=== PATIENT | male | born 1995 | race Hispanic/Latino ===

== ENCOUNTER 2022-07-02 06:43 | Emergency (ER) | payer BC ==
--- OUTSIDE RECORDS SUMMARY | 2022-07-02 06:47 | XMS REPORT | Continuity of Care Document ---
:1995 Author Organization [facility] t Address [address] [place] [address] Care Team Providers Name Role Phone ANNE MARIE KINGSLEY Primary Care Physician Unavailable Anne Marie Catalan Attending Clinician ANNE MARIE KINGSLEY Attending Clinician Unavailable Lab, Ang - Db Attending Clinician Unavailable Doctor Unassigned, Clarita Attending Clinician Unavailable JENN_Susan Attending Clinician Unavailable Diane Barajas Attending Clinician [phone] ULICES Admitting Clinician Unavailable Payers Payer Name Policy Type Policy Number Effective Date Expiration Date [place] [id number] 2021 00:00:00 [place] Problems Condition Condition Condition Status Onset Resolution Last Treating Co mments Source Name Details Category Date Date Treatment Clinician Date No known No known Disease Unive rs active active ity of problems problems [facility] Allergies, Adverse Reactions, Alerts Allergy Allergy Status Severity Reaction(s) Onset Inactive Treating Comm ents Source Name Type Date Date Clinician NO KNOWN Drug Active Univers ALLERGIE Class ity of S [facility] Social History Social Habit Start Date Stop Date Quantity Comments Source History of Cigar Smoker University o f tobacco use [place] [facility] History SDOH University o f Alcohol Frequency [place] [facility] History SDOH University o f Alcohol Std [place] [facility] History SDOH University o f Alcohol Binge [place] [facility] Exposure to 2021-09-02 2021-09-12 Not sure University of SARS-CoV-2 00:00:00 12:48:00 [place] [facility] (event) [facility] Tobacco use and 2021-09-12 2021-09-12 Never used Universit y of exposure 00:00:00 00:00:00 [facility] Alcohol intake 2021-09-12 2021-09-12 Current drinker Unive rsity of 00:00:00 00:00:00 of alcohol [facility] (finding) [place] Alcohol Comment 2021-09-12 2021-09-12 2-3/ week Universit y of 00:00:00 00:00:00 [facility] Sex Ass[birth year] At [birth year] Universit y of 00:00:00 00:00:00 [facility] Smoking Status Start Date Stop Date Source Never Smoker [facility] Current some day smoker 2021-09-12 00:00:00 [facility] Medications Ordered Filled Start Stop Current Ordering Indication Dosage Frequency Signature Comments Components Source Medication Medication Date Date Medication? Clinician (SIG) Name Name pantoprazol Yes [id number] 40mg Take 1 Univers e 4-26 tablet by ity of (PROTONIX) 00:00: mouth [place] 40 mg EC 00 daily. Medical tablet Branch pantoprazol Yes [id number] 40mg Take 1 Univers e 4-26 tablet by ity of (PROTONIX) 00:00: mouth [place] 40 mg EC 00 daily. Medical tablet Branch pantoprazol Yes [id number] 40mg Take 1 Univers e 4-26 tablet by ity of (PROTONIX) 00:00: mouth [place] 40 mg EC 00 daily. Medical tablet Branch azithromyci azithromyci No 1 Q1D azithromyc [place] n 500 mg n 500 mg in 500 mg Co mmuni tablet Take tablet Take tablet ty 1 tablet 1 tablet Take 1 Hospi ta every day every day tablet l by oral by oral every day Clin ics route for 5 route for 5 by oral days. days. route for 5 days. prednisone prednisone No 1 BID prednisone [place] 20 mg 20 mg 20 mg Communi tablet Take tablet Take tablet ty 1 tablet 1 tablet Take 1 Hospi ta twice a day twice a day tablet l by oral by oral twice a Clinic s route for 5 route for 5 day by days. days. oral route for 5 days. Vital Signs Vital Name Observation Time Observation Value Comments Source Systolic blood 2021-09-12 18:09:00 122 mm[Hg] Univer sity of pressure [facility] Diastolic blood 2021-09-12 18:09:00 83 mm[Hg] Unive rsity of pressure [facility] Heart rate 2021-09-12 18:09:00 56 /min [facility] Body temperature 2021-09-12 18:09:00 [facility].78 [facility] height 2021-09-12 18:09:00 177.8 cm [facility] Body weight 2021-09-12 18:09:00 109.907 kg [facility] BMI 2021-09-12 18:09:00 34.77 kg/m2 [facility] Oxygen saturation in 2021-09-12 18:09:00 99 /min [facility] blood by [facility] Pulse oximetry Branch BP Diastolic 2021-05-04 00:00:00 74 mm[Hg] [facility] s Height 2021-05-04 00:00:00 70 [in_i] [facility] s BMI (Body Mass 2021-05-04 00:00:00 35.2 kg/m2 [facility] s BP Systolic 2021-05-04 00:00:00 122 mm[Hg] [facility] s Body Weight 2021-05-04 00:00:00 3929.6 [oz_av] [facility] s Procedures Procedure Date / Time Performed Performing Clinician Sour e US ABDOMEN LIMITED 2021-09-12 20:38:59 Anne Marie Kingsley [facility] NOTICE OF PRIVACY 2021-09-12 19:49:17 Doctor Unassigned, No [facility] CONSENT/REFUSAL FOR 2021-09-12 19:49:03 Doctor Unassigned, No [facility] DIAGNOSIS AND [facility] TREATMENT ASSIGNMENT OF BENEFITS 2021-09-12 19:48:48 Doctor Unassigned, No [facility] Plan of Care Planned Activity Planned Date Details Comments Source Diagnostic Test Pending 2021-05-04 rapid strep group [facility] 00:00:00 A, throat [code = Hospital C linics rapid strep group A, throat] Instructions [place] [facility] Encounters Start End Encounter Admission Attending Care Care Encounter Source Date/Time Date/Time Type Type Clinicians Facility Department ID 2021-09-12 2021-09-12 [facility] [id number] Univers 14:50:44 23:59:00 Encounter Anne Marie BENITEZ [id number] ity [id number] [id number] [facility] [address] [place] 2021-09-12 2021-09-12 [facility] [id number] Univers 14:50:44 14:50:44 ANNE MARIE alatorre [facility] 2021-09-12 2021-09-12 Nurse Intern Lab, Lloyd - Alec [facility] [id number] Univers 14:15:00 14:18:53 Visit Anne Marie Kingsley [id number] ity of [place] [id number] [place] as [place]AMILLA?BLEA [phone] [facility] [address] [place] MEDICAL OFFICE [facility] 2021-09-12 2021-09-[address] [id number] Univers 13:00:00 14:18:45 Visit Anne Marie HUMPHREY [id number] it y [facility] [id number] [place] as [place]AMILLA?BLEA [id number] [facility] [address] [place] MEDICAL OFFICE [facility] 2021-09-12 2021-09-12 [facility] [id number] Univers 13:00:00 14:18:45 ANNE MARIE itxenia [facility] 2021-09-12 2021-09-12 Orders Doctor DENISA [id number] Univers 00:00:00 00:00:00 Only Unassigned, HARDEEP [id number] ity of [place] [facility] [id number] [place] as [id number] [facility] 009 Branch 2021-07-25 2021-07-25 Outpatient [facility] [id number] [place] 02:49:00 02:49:00 308 Commun i ty [facility] 2021-06-20 2021-06-20 Outpatient [facility] [id number] [place] 02:12:00 02:12:00 201 Commun i ty [facility] Clin[facility] 2021-05-16 2021-05-16 Outpatient [facility] [id number] [place] 04:32:00 04:32:00 228 Commun i ty [facility]osp[facility] Clin[facility] 2021-05-04 2021-05-04 Outpatient [facility] [id number] [place] 03:12:00 03:12:00 216 Commun i ty Hosp[facility] Clinics 2021-05-04 2021-05-04 Diane [facility] [place] [id number] [place] 00:00:00 00:00:00 Jenn [facility] [employer]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 2021-05-04 2021-05-04 Outpatient Jenn [facility] [id number] 00:00:00 00:00:00 Diane [id number] Results This patient has no known results.
[2022-07-02] MEDS ORDERED: MECLIZINE HCL 12.5 MG TAB ONE (07:33)
[2022-07-02 07:47] LABS: Absolute Lymphocytes (CBC) 1.7 K/uL (0.7-4.9); Hematocrit 44.3 % (39.6-49.0); MCV 84.8 fL (80-100); MPV 7.8 fL (7.6-11.3); RBC Red Blood Cell Count 5.22 M/uL (4.33-5.43)
[2022-07-02 07:53] LABS: Protime INR 0.97
[2022-07-02 08:07] LABS: Albumin 4.1 g/dL (3.4-5.0); Bilirubin Direct 0.1 mg/dL (0-0.2); Bilirubin Total 0.4 mg/dL (0.2-1.0); Magnesium 2.5 mg/dL (1.6-2.4); Potassium 3.9 mmol/L (3.5-5.1); Protein, Total 7.4 g/dL (6.4-8.2); Troponin High Sensitivity 4.8 pg/mL (<58.9)
--- NOTE | 2022-07-02 08:45 | RAD REPORT ---
EXAM DESCRIPTION: CT - Head Brain Wo Cont - 07/02/2022 8:32 am CLINICAL HISTORY: DIZZINESS Headache, drowsiness COMPARISON: Neck Angio dated 07/02/2022; Head angio dated 07/02/2022 TECHNIQUE: All CT scans are performed using dose optimization technique as appropriate and may inclu de automated exposure control or mA/KV adjustment according to patient size. FINDINGS: No intracranial hemorrhage, hydrocephalus or extra-axial fluid collection.No areas of brai n edema or evidence of midline shift. The paranasal sinuses and mastoids are clear. The calvarium is intact. IMPRESSION: No acute intracranial abnormality.
--- NOTE | 2022-07-02 08:52 | RAD REPORT ---
EXAM DESCRIPTION: RAD - Chest Single View - 07/02/2022 7:35 am CLINICAL HISTORY: dizziness Chest pain. COMPARISON: Chest Pa And Lat (2 Views) dated 04/22/2017 FINDINGS: Portable technique limits examination quality. The lungs are grossly clear. The heart is upper limit of normal in size. No displaced fractures. IMPRESSION: No acute intrathoracic process suspected.
--- NOTE | 2022-07-02 08:58 | RAD REPORT ---
EXAM DESCRIPTION: CT - Head angio - 07/02/2022 8:32 am CLINICAL HISTORY: DIZZINESS Headache, drowsiness COMPARISON: Head Brain Wo Cont dated 07/02/2022 TECHNIQUE: CT angiography of the head was performed with MIPs. All CT scans are performed using dose optimization technique as appropriate and may include automated exposure control or mA/KV adjustment according to patient size. FINDINGS: No evidence of aneurysm is detected. No flow-limiting stenosis or vascular malformation id entified. Antegrade flow is seen in the vertebral arteries. The vertebral arteries are codominant. The visualized dural venous sinuses are patent. Mild sinus mucosal thickening. IMPRESSION: No significant flow abnormality is detected.
--- NOTE | 2022-07-02 09:01 | RAD REPORT ---
EXAM DESCRIPTION: CT - Neck Angio - 07/02/2022 8:32 am CLINICAL HISTORY: dizziness Headache, drowsiness COMPARISON: Head C Spine Mpr Wo Con dated 03/26/2016 TECHNIQUE: CT angiography of the neck vessels was performed with MIPs. All CT scans are performed using dose optimization technique as appropriate and may include automated exposure control or mA/KV adjustment according to patient size. FINDINGS: A left aortic arch is identified with normal three vessel configuration of the great vesse ls. No significant flow abnormality is seen of the common carotid bilaterally. No significant stenosis is identified involving the cervical segments of both internal carotid arteri es. Normal flow is seen within both vertebral arteries. IMPRESSION: No significant flow abnormality of the neck vessels is identified.
--- NOTE | 2022-07-02 09:33 | ER ---
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 Coronavirus screen: Vaccine status: Patient reports being unvaccinated. At this time, the client does not indicate any symptoms associated with coronavirus-19. Ebola Screen: No symptoms or risks identified at this time. Initial Sepsis Screen: Does the patient meet any 2 criteria? No. Patient's initial sepsis screen is negative. Does the patient have a suspected source of infection? No. Patient's initial sepsis screen is negative. Risk Assessment: Do you want to hurt yourself or someone else? Patient reports no desire to harm self or others. Onset of symptoms was June 21, 2022. 06:59 Method Of Arrival: Ambulatory ll3 06:59 Acuity: CHETAN 3 ll3 Triage Assessment: 07:01 General: Appears comfortable, Behavior is calm, cooperative. Pain: Denies pain. Neuro: ll3 Level of Consciousness is awake, alert, obeys commands, Oriented to person, place, time, situation, Reports dizziness, since 06/21/22. Historical: - Allergies: 07:01 No Known Allergies; ll3 - Home Meds: 07:01 Pepcid Oral [Active]; ll3 - PMHx: 07:01 Gastric reflux; ll3 - PSHx: 07:01 None; ll3 - Immunization history:: Client reports having NOT received the Covid vaccine. - Social history:: Smoking status: Patient denies any tobacco usage or history of. - Family history:: not pertinent. - Hospitalizations: : No recent hospitalization is reported. Screenin:08 [facility] ED Fall Risk Assessment (Adult) History of falling in the last 3 months, eh3 including since admission No falls in past 3 months (0 pts) Confusion or Disorientation No (0 pts) Intoxicated or Sedated No (0 pts) Impaired Gait No (0 pts) Mobility Assist Device Used No (0 pt) Altered Elimination No (0 pt) Score/Fall Risk Level 0 - 2 = Low Risk. Abuse screen: Denies threats or abuse. Denies injuries from another. Nutritional screening: No deficits noted. Tuberculosis screening: No symptoms or risk factors identified. Assessment: 07:08 General: Appears in no apparent distress. uncomfortable, Behavior is calm, cooperative, eh3 appropriate for age. Pain: Denies pain. Neuro: Level of Consciousness is awake, alert, obeys commands, Oriented to person, place, time, situation, Speech is normal, Pupils are PERRLA. Neuro: Reports blurred vision dizziness. Cardiovascular: Capillary refill < 3 seconds Patient's skin is warm and dry. Respiratory: Airway is patent Respiratory effort is even, unlabored, Respiratory pattern is regular, symmetrical. GI: No signs and/or symptoms were reported involving the gastrointestinal system. Abdomen is round non-distended. : No signs and/or symptoms were reported regarding the genitourinary system. EENT: No signs and/or symptoms were reported regarding the EENT system. Derm: Skin is pink, warm \\T\\ dry. Derm: No signs and/or symptoms reported regarding the dermatologic system. Musculoskeletal: No signs and/or symptoms reported regarding the musculoskeletal system. Circulation, motion, and sensation intact. Range of motion: intact in all extremities. 08:00 Reassessment: Patient appears in no apparent distress at this time. Patient and/or 3 family updated on plan of care and expected duration. Pain level reassessed. Patient is alert, oriented x 3, equal unlabored respirations, skin warm/dry/pink. 08:51 Reassessment: Patient appears in no apparent distress at this time. Patient and/or 3 family updated on plan of care and expected duration. Pain level reassessed. Patient is alert, oriented x 3, equal unlabored respirations, skin warm/dry/pink. Vital Signs: 06:59 BP 128 / 80; Pulse 65; Resp 16; Temp 98.4(O); Pulse Ox 100% on R/A; Weight 106.14 kg ll3 (R); Height 5 ft. 11 in. (180.34 cm) (R); Pain 0/10; 07:08 BP 137 / 81; Pulse 61; Resp 18; Pulse Ox 100% on R/A; eh3 08:00 BP 124 / 85; Pulse 62; Resp 15; Pulse Ox 99% on R/A; eh3 08:51 BP 117 / 76; Pulse 70; Resp 17; Pulse Ox 100% on R/A; eh3 06:59 Body Mass Index 32.64 (106.14 kg, 180.34 cm) 3 ED Course: 06:48 Patient arrived in ED. ja2 06:51 Urbano Cross DO is Attending Physician. ms3 07:01 Triage completed. ll3 07:01 Arm band placed on. ll3 07:03 Attending Physician role handed off by Urbano Cross DO rn 07:03 Robbie Joya MD is Attending Physician. rn 07:08 Razia Dove, JULIO C is Primary Nurse. 3 07:08 Patient has correct armband on for positive identification. Bed in low position. Call 3 light in reach. Side rails up X2. Pulse ox on. NIBP on. Door closed. Noise minimized. 07:35 Inserted saline lock: 20 gauge in left wrist, using aseptic technique. Blood collected. ha1 09:44 No provider procedures requiring assistance completed. IV discontinued, intact, eh3 bleeding controlled, No redness/swelling at site. Pressure dressing applied. Administered Medications: 07:30 Drug: Meclizine 50 mg Route: PO; ha1 09:43 Follow up: Response: No adverse reaction 3 Medication: 09:44 VIS not applicable for this client. 3 Outcome: 09:33 Discharge ordered by . rn 10:00 Discharged to home ambulatory, with family. 3 10:00 Condition: stable 10:00 Discharge instructions given to patient, family, Instructed on discharge instructions, follow up and referral plans. medication usage, Demonstrated understanding of instructions, follow-up care, medications, Prescriptions given X 1. 10:00 Patient left the ED. 3 Signatures: Robbie Joya MD MD rn Sims, Marcus, DO DO ms3 Kiley Villegas ja2 Marin Ulloa RN RN 3 Razia Dove, JULIO C BUNCH 3 Damari Anders RN RN 1 Corrections: (The following items were deleted from the chart) 07:02 07:01 Home Meds: None; ll3 ll3
--- NOTE | 2022-07-02 09:33 | EDPHYS ---
Physician Documentation [facility] Nadeen Name: Bao Schaefer Age: 27 yrs Sex: Male : 1995 Arrival Date: 07/02/2022 Time: 06:48 Bed 12 Private MD: ED Physician Robbie Joya HPI: 07/02 07:38 This 27 yrs old Male presents to ER via Ambulatory with complaints of rn Dizziness. 07:38 The patient presents with dizziness, feeling faint, lightheadedness, vertigo. rn 07:40 Onset: The symptoms/episode began/occurred 2 week(s) ago. Context: occurred at an rn unknown location, occurred while the patient was at rest. Modifying factors: The symptoms are alleviated by nothing, the symptoms are aggravated by sudden movement, getting hit it head. Associated signs and symptoms: Pertinent negatives: abdominal pain, agitation, ataxia, chest pain, confusion, focal weakness, headache, numbness, palpitations, seizure, shortness of breath, syncope, vomiting. Severity of symptoms: At their worst the symptoms were moderate in the emergency department the symptoms have improved. The patient has experienced similar episodes in the past. The patient has not recently seen a physician. 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 No chest pain/sob/abd pain/vomiting/diarrhea/blood in stool. . Historical: - Allergies: 07:01 No Known Allergies; ll3 - Home Meds: 07:01 Pepcid Oral [Active]; ll3 - PMHx: 07:01 Gastric reflux; ll3 - PSHx: 07:01 None; ll3 - Immunization history:: Client reports having NOT received the Covid vaccine. - Social history:: Smoking status: Patient denies any tobacco usage or history of. - Family history:: not pertinent. - Hospitalizations: : No recent hospitalization is reported. ROS: 07:40 Constitutional: Negative for fever, chills, and weight loss, Cardiovascular: Negative rn for chest pain, palpitations, and edema, Respiratory: Negative for shortness of breath, cough, wheezing, and pleuritic chest pain, Abdomen/GI: Negative for abdominal pain, nausea, vomiting, diarrhea, and constipation, Back: Negative for injury and pain, MS/Extremity: Negative for injury and deformity, Skin: Negative for injury, rash, and discoloration, Neuro: Negative for headache, weakness, numbness, tingling, and seizure. Exam: 07:40 Constitutional: This is a well developed, well nourished patient who is awake, alert, rn and in no acute distress. Head/Face: Normocephalic, atraumatic. Eyes: Pupils equal round and reactive to light, extra-ocular motions intact. Lids and lashes normal. Conjunctiva and sclera are non-icteric and not injected. Cornea within normal limits. Periorbital areas with no swelling, redness, or edema. Neck: Trachea midline, no masses palpated, and no cervical lymphadenopathy. Supple, full range of motion without nuchal rigidity, or vertebral point tenderness. No Meningismus. Cardiovascular: Regular rate and rhythm. No pulse deficits. Respiratory: No increased work of breathing, no retractions or nasal flaring. Abdomen/GI: Soft, non-tender Skin: Warm, dry with normal turgor. Normal color with no rashes, no lesions, and no evidence of cellulitis. MS/ Extremity: Pulses equal, no cyanosis. Neurovascular intact. Full, normal range of motion. Equal circumference. Neuro: Awake and alert, GCS 15, oriented to person, place, time, and situation. Cranial nerves II-XII grossly intact. Motor strength 5/5 in all extremities. Sensory grossly intact. Cerebellar exam normal. 09:33 ECG was reviewed by the Attending Physician. rn Vital Signs: 06:59 BP 128 / 80; Pulse 65; Resp 16; Temp 98.4(O); Pulse Ox 100% on R/A; Weight 106.14 kg ll3 (R); Height 5 ft. 11 in. (180.34 cm) (R); Pain 0/10; 07:08 BP 137 / 81; Pulse 61; Resp 18; Pulse Ox 100% on R/A; eh3 08:00 BP 124 / 85; Pulse 62; Resp 15; Pulse Ox 99% on R/A; eh3 08:51 BP 117 / 76; Pulse 70; Resp 17; Pulse Ox 100% on R/A; eh3 06:59 Body Mass Index 32.64 (106.14 kg, 180.34 cm) ll3 MDM: 06:56 Patient medically screened. ms3 06:56 ED course: Patient medically screened awaiting Dr Joya. 2 weeks of dizziness, ms3 described as the room spinning around him. Patient states he took Dramamine to reduce his symptoms. Patient states he is asymptomatic at this time.. 09:31 Differential diagnosis: cardiac arrhythmia, CVA, generalized weakness, GI bleed, rn hyperventilation, hypovolemia, idiopathic dizziness, near-syncope, TIA, vertigo. Data reviewed: vital signs, nurses notes, lab test result(s), EKG, radiologic studies, CT scan, plain films, and as a result, I will discharge patient. Independent interpretation of the following test(s) in the Emergency Department EKG: See my EKG interpretation above X-Ray: My interpretation is CXR neg for pneumonia/pneumothorax. Counseling: I had a detailed discussion with the patient and/or guardian regarding: the historical points, exam findings, and any diagnostic results supporting the discharge/admit diagnosis, lab results, radiology results, the need for outpatient follow up, to return to the emergency department if symptoms worsen or persist or if there are any questions or concerns that arise at home. Response to treatment: the patient's symptoms have mildly improved after treatment, and as a result, I will discharge patient. Special discussion: I discussed with the patient/guardian in detail that at this point there is no indication for admission to the hospital. It is understood, however, that if the symptoms persist or worsen the patient needs to return immediately for re-evaluation. Based on the history and exam findings, there is no indication for further emergent testing or inpatient evaluation. I discussed with the patient/guardian the need to see the neurologist for further evaluation of the symptoms. I discussed with the patient/guardian the need to see the primary care provider for further evaluation of the symptoms. ED course: CT head and CTA head/neck neg for acute abnormality, stable vitals, neg trop, normal ECG, feels better after meclizine, will dc home with pcp and neuro f/u as well as meclizine prescription. . 07/02 07:14 Order name: Basic Metabolic Panel rn 07/02 07:14 Order name: CBC with Diff rn 07/02 07:14 Order name: Hepatic Function rn 07/02 07:14 Order name: Magnesium rn 07/02 07:14 Order name: Protime (+inr) rn 07/02 07:14 Order name: Ptt, Activated rn 07/02 07:14 Order name: Troponin High Sensitivity rn 07/02 07:49 Order name: CBC with Automated Diff; Complete Time: 09:20 EDMS 07/02 07:53 Order name: PTT, Activated Partial Thromb; Complete Time: 09:20 EDMS 07/02 07:54 Order name: Protime (+INR); Complete Time: 09:20 EDMS 07/02 08:07 Order name: Basic Metabolic Panel; Complete Time: 09:20 EDMS 07/02 08:07 Order name: Liver (Hepatic) Function; Complete Time: 09:20 EDMS 07/02 08:07 Order name: Troponin High Sensitivity; Complete Time: 09:20 EDMS 07/02 08:07 Order name: Magnesium; Complete Time: 09:20 EDMS 07/02 07:14 Order name: CT Head Brain wo Cont rn 07/02 07:14 Order name: Chest Single View XRAY rn 07/02 07:14 Order name: EKG; Complete Time: 07:15 rn 07/02 07:14 Order name: Cardiac monitoring; Complete Time: 07:29 rn 07/02 07:14 Order name: EKG - Nurse/Tech; Complete Time: 07:29 rn 07/02 07:14 Order name: IV Saline Lock; Complete Time: 07:42 rn 07/02 07:14 Order name: Labs collected and sent; Complete Time: 07:42 rn 07/02 07:14 Order name: O2 Per Protocol; Complete Time: 07:16 rn 07/02 07:14 Order name: O2 Sat Monitoring; Complete Time: 07:16 rn 07/02 07:14 Order name: Head Angio CT rn 07/02 07:14 Order name: Neck Angio CT rn 07/02 08:45 Order name: CT; Complete Time: 09:20 EDMS 07/02 08:53 Order name: RAD; Complete Time: 09:20 EDMS 07/02 08:58 Order name: CT; Complete Time: 09:20 EDMS 07/02 09:02 Order name: CT; Complete Time: 09:20 EDMS EC:33 Rate is 55 beats/min. Rhythm is regular. QRS [place] is Normal. SC interval is normal. QRS rn interval is normal. QT interval is normal. No Q waves. T waves are Normal. No ST changes noted. Clinical impression: Sinus bradycardia. Interpreted by me. Reviewed by me. Administered Medications: 07:30 Drug: Meclizine 50 mg Route: PO; ha1 09:43 Follow up: Response: No adverse reaction 3 Disposition Summary: 07/02/22 09:33 Discharge Ordered Location: Home rn Problem: an ongoing problem rn Symptoms: have improved rn Condition: Stable rn Diagnosis - Dizziness and giddiness rn Followup: rn - With: Private Physician - When: As needed - Reason: Recheck today's complaints, Re-evaluation by your physician Discharge Instructions: - Discharge Summary Sheet rn - Dizziness rn - Vertigo rn Forms: - Medication Reconciliation Form rn - Thank You Letter rn - Antibiotic seo intern - Prescription Opioid Use rn - Work release form 3 Prescriptions: - Meclizine 25 mg Oral Tablet - take 1 tablet by ORAL route every 8 hours As needed; 30 tablet; Refills: 0, rn Product Selection Permitted Signatures: Dispatcher [employer] EDMS Robbie Joya MD MD rn Sims, Marcus, DO DO ms3 Marin Ulloa RN RN 3 Damari Anders RN RN 1 Razia Dove RN 3 Corrections: (The following items were deleted from the chart) 07:02 07:01 Home Meds: None; ll3 ll3
[2022-07-02 10:13] VITALS: TEMP 98.4
[2022-07-02 10:26] VITALS: BP 117/76; O2SAT 100
--- NOTE | 2022-07-03 17:16 | EKG ---
Test Date: 2022-07-02 Test Time: 07:25:54 Vp Integrity: LOCO MEASUREMENT RESULTS: Intervals: Rate: 55 WA: 114 QRSD: 114 QT: 412 QTc: 394 [place]: P: 33 WA: 114 QRS: 57 T: 50 INTERPRETIVE STATEMENTS: Sinus bradycardia with sinus arrhythmia Otherwise normal ECG No previous ECG available for comparison Electronically Signed On 07-03-22 17:10:51 PING PONG TABLE ASSEMBLER by Ramon Garcia
== END 2022-07-02 10:00 | disposition home or self-care (01) ==
LOC: ER 06:43
DX: R42 Dizziness and giddiness (principal); K21.9 Gastro-esophageal reflux disease without esophagitis
CPT/HCPCS: 93005; 85025; 80048; 36415; 83735; 85610; 80076; 85730; 84484; 70450; 70496; 70498; 71045; 99284; Q9967; J8597

== ENCOUNTER 2023-09-20 11:56 | Emergency (ER) | payer BC ==
--- OUTSIDE RECORDS SUMMARY | 2023-09-20 11:58 | XMS REPORT | Continuity of Care Document ---
Author Name Unknown Address [address] [facility] [address] [place] [address] [facility] Address [address] [facility] [address] [place] [address] Care Team Providers Care Head Animal Keeper Name Role Phone Anne Marie Catalan Primary Care Physician [phone] FRANCOISE WHITE Attending Clinician Unavailable Doctor Unassigned, [place] Attending Clinician U Francoise Carroll Attending Clinician [phone] DEVEN CALIXTO Attending Clinician Unavail able DEVEN CALIXTO Attending Clinician Unavail able Francoise Milligan Attending Clinician [phone] Deven Calixto MD Attending Clinician Anne Marie Catalan Attending Clinician [phone] ANNE MARIE FERNANDEZ Attending Clinician Unavailable Lab, Ang - Db Attending Clinician Unavailable WATERS_S Attending Clinician Unavailable Diane Barajas Attending Clinician [phone] DEVEN CALIXTO Admitting Clinician Unavail able ULICES Admitting Clinician Unavailable Payers Payer Name Policy Type Policy Number Effective Date Expirati on Date Source [place] [id number] 2021 00:00:00 [place] [id number] 2021 00:00:00 Problems Condition Name Condition Details Condition Category Status Onset Date Resolution Date Last Treatment Date Treating Clinician Comments Source No known active problems No known active problems Disease [facility] Allergies, Adverse Reactions, Alerts Allergy Name Allergy Type Status Severity Reaction(s) Onset Date Inactive Date Treating Clinician Comments Source NO KNOWN ALLERGIE S Drug Class Active [facility] Social History Social Habit Start Date Stop Date Quantity Comments Source [facility] of tobacco use Cigar Smoker [facility] History SDOH Alcohol Frequency [facility] History SDOH Alcohol Std Drinks [facility] History SDOH Alcohol Binge [facility] Alcohol intake 2022-09-07 00:00:00 2022-09-07 00:00:00 Current drinker of alcohol (finding) [facility] Exposure to SARS-CoV-2 (event) 2022-08-14 00:00:00 2022-08-24 08:41:00 Not sure [facility] History of Social function 2022-07-20 00:00:00 2022-07-20 00:00:00 [facility] Tobacco use and exposure 2021-09-12 00:00:00 2021-09-12 00:00:00 Smokeless tobacco non-user [facility] Alcohol Comment 2021-09-12 00:00:00 2021-09-12 00:00:00 2-3/ week [facility] Sex Assigned At 1995 00:00:00 1995 00:00:00 [facility] Smoking Status Start Date Stop Date Source Never Smoker [facility] Occasional tobacco smoker 2021-09-12 00:00:00 [facility] Medications Ordered Medication Name Filled Medication Name Start Date Stop Date Current Medication? Ordering Clinician Indication Dosage Frequency Signature (SIG) Comments Components Source meclizine HCl (MECLIZINE ORAL) 09-07 09:25: 05 Yes Take by mouth as needed. [facility] gadoteridol (PROHANCE-2 0 mL) injection 0.2 mL/kg 08-14 22:30: 00 08-14 22:22 :00 No [id number] .2mL/kg 0.2 mL/kg, Intravenou s, ONCE, 1 dose, On Sat08/14/22 at 1730, Routine [facility] pantoprazol e (PROTONIX) 40 mg EC tablet 09-12 00:00: 00 09-07 00:00 :00 No [id number] 40mg Take 1 tablet by mouth daily. [facility] azithromyci n 500 mg tablet Take 1 tablet every day by oral route for 5 days. azithromyci n 500 mg tablet Take 1 tablet every day by oral route for 5 days. No 1 Q1D azithromyc in 500 mg tablet Take 1 tablet every day by oral route for 5 days. [facility] prednisone 20 mg tablet Take 1 tablet twice a day by oral route for 5 days. prednisone 20 mg tablet Take 1 tablet twice a day by oral route for 5 days. No 1 BID prednisone 20 mg tablet Take 1 tablet twice a day by oral route for 5 days. [facility] Vital Signs Vital Name Observation Time Observation Value Comments S ource Systolic blood pressure 2022-09-07 14:26:00 114 mm[Hg] [facility] Diastolic blood pressure 2022-09-07 14:26:00 78 mm[Hg] [facility] Heart rate 2022-09-07 14:26:00 50 /min [facility] Body temperature 2022-09-07 14:26:00 36.33 Araceli [facility] Respiratory rate 2022-09-07 14:26:00 18 /min [facility] Body height 2022-09-07 14:26:00 179.1 cm [facility] Body weight 2022-09-07 14:26:00 110.179 kg [facility] BMI 2022-09-07 14:26:00 34.36 kg/m2 [facility] Oxygen saturation in Arterial blood by Pulse oximetry 2022-09-07 14:26:00 100 /min [facility] Body height 2022-08-24 14:10:00 179.1 cm [facility] Body weight 2022-08-24 14:10:00 107.956 kg [facility] BMI 2022-08-24 14:10:00 33.67 kg/m2 [facility] Oxygen saturation in Arterial blood by Pulse oximetry 2022-08-24 14:10:00 98 /min [facility] Systolic blood pressure 2022-08-24 14:10:00 104 mm[Hg] [facility] Diastolic blood pressure 2022-08-24 14:10:00 71 mm[Hg] [facility] Heart rate 2022-08-24 14:10:00 68 /min [facility] Systolic blood pressure 2022-07-20 20:54:00 116 mm[Hg] [facility] Diastolic blood pressure 2022-07-20 20:54:00 77 mm[Hg] [facility] Heart rate 2022-07-20 20:54:00 68 /min [facility] Body height 2022-07-20 20:54:00 179.1 cm [facility] Body weight 2022-07-20 20:54:00 107.956 kg [facility] BMI 2022-07-20 20:54:00 33.67 kg/m2 [facility] Oxygen saturation in Arterial blood by Pulse oximetry 2022-07-20 20:54:00 98 /min [facility] Systolic blood pressure 2021-09-12 18:09:00 122 mm[Hg] [facility] Diastolic blood pressure 2021-09-12 18:09:00 83 mm[Hg] [facility] Heart rate 2021-09-12 18:09:00 56 /min [facility] Body temperature 2021-09-12 18:09:00 36.78 Araceli [facility] Body height 2021-09-12 18:09:00 177.8 cm [facility] Body weight 2021-09-12 18:09:00 109.907 kg [facility] BMI 2021-09-12 18:09:00 34.77 kg/m2 [facility] Oxygen saturation in Arterial blood by Pulse oximetry 2021-09-12 18:09:00 99 /min [facility] BP Diastolic 2021-05-04 00:00:00 74 mm[Hg] [facility] Height 2021-05-04 00:00:00 70 [in_i] [facility] BMI (Body Mass Index) 2021-05-04 00:00:00 35.2 kg/m2 [facility] BP Systolic 2021-05-04 00:00:00 122 mm[Hg] [facility] Body Weight 2021-05-04 00:00:00 3929.6 [oz_av] [facility] Procedures Procedure Date / Time Performed Performing Clinicia n Source US ABDOMEN LIMITED 2021-09-12 20:38:59 Anne Marie Fernandez [facility] NOTICE OF PRIVACY PRACTICES 2021-09-12 19:49:17 Doctor Unassigned, [place] [facility] CONSENT/REFUSAL FOR DIAGNOSIS AND TREATMENT 2021-09-12 19:49:03 Doctor Unassigned, [place] [facility] ASSIGNMENT OF BENEFITS 2021-09-12 19:48:48 Docto r Unassigned, [place] [facility] Plan of Care Planned Activity Planned Date Details Comments Source Diagnostic Test Pending 2021-05-04 00:00:00 rapid strep group A, throat [code = rapid strep group A, throat] [facility] Instructions [facility] Encounters Start Date/Time End Date/Time Encounter Type Admission Type Attending Clinicians Care Facility Care Department Encounter ID Source 2022-10-12 10:00:00 2022-10-12 10:00:00 Outpatient FRANCOISE LOVING [facility] [id number] [facility] 2022-09-09 00:00:00 2022-09-09 00:00:00 Patient Secure Msg Doctor Unassigned, [place] [facility] [id number] [id number] [facility] 2022-09-07 09:30:00 2022-09-07 09:46:53 Outpatient FRANCOISE LOVING [facility] [id number] [facility] 2022-09-07 09:30:00 2022-09-07 09:46:53 [facility] [id number] 350.1.13.10 [id number] [facility] 2022-08-24 09:00:00 2022-08-24 09:43:09 Outpatient DEVEN SHANKAR HOWARD [facility] [id number] [facility] 2022-08-24 09:00:00 2022-08-24 09:43:09 Office Visit Javier FrancoiseDeven Miller [facility] [id number] 350.1.13.10 [id number] [id number] [facility] 2022-08-17 15:00:00 2022-08-17 15:00:00 Outpatient DEVEN SHANKAR HOWARD [facility] [id number] [facility] 2022-08-14 15:05:32 2022-08-14 23:59:00 Outpatient DEVEN SHANKAR HOWARD [facility] [id number] [facility] 2022-08-14 15:05:32 2022-08-14 23:59:00 Hospital Encounter Deven Calixto [place] [id number] 350.1.13.10 4.2.7.2.686 [id number] [facility] 2022-07-20 15:00:00 2022-07-20 16:00:10 Outpatient DEVEN SHANKAR HOWARD [facility] [id number] [facility] 2022-07-20 15:00:00 2022-07-20 16:00:10 Office Visit Deven Calixto [facility] [id number] 350.1.13.10 [id number] [id number] [facility] 2021-09-12 14:50:44 2021-09-12 23:59:00 Hospital Encounter Anne Marie Fernandez [facility] [id number] 350.1.13.10 [id number] [id number] [facility] 2021-09-12 14:50:44 2021-09-12 14:50:44 Outpatient R ANNE MARIE FERNANDEZ [facility] [id number] [facility] 2021-09-12 14:15:00 2021-09-12 14:18:53 Costumer Visit Lab, [facility] 1..840.114 350.1.13.10 4.2.7.2.686 [id number] [facility] 2021-09-12 13:00:00 2021-09-12 14:18:45 Office Visit [facility] [id number] 350.1.13.10 [id number] [id number] [facility] 2021-09-12 13:00:00 2021-09-12 14:18:45 Outpatient R ANNE MARIE FERNANDEZ [facility] [id number] [facility] 2021-09-12 00:00:00 2021-09-12 00:00:00 Orders Only Doctor Unassigned, [place] [facility] [id number] 350.1.13.10 [id number] [id number] [facility] 2021-07-25 02:49:00 2021-07-25 02:49:00 Outpatient [facility]ERS[facility] [id number] 2021-06-20 02:12:00 2021-06-20 02:12:00 Outpatient [facility] [id number] 2021-05-16 04:32:00 2021-05-16 04:32:00 Outpatient [facility] [id number] [facility] 2021-05-04 03:12:00 2021-05-04 03:12:00 Outpatient [facility] [id number] [facility] 2021-05-04 00:00:00 2021-05-04 00:00:00 SHEILA CraigAUTO DESIGN CHECKER-C: [address] [place] [address], [address] [address] , Ph. [facility] [place] [facility] [id number] [facility] 2021-05-04 00:00:00 2021-05-04 00:00:00 Outpatient JennDiane [facility] [id number]
[2023-09-20 13:52] LABS: Absolute Eosinophils 0.1 K/uL (0-0.5); Absolute Monocytes 0.6 K/uL (0.1-1.3); Absolute Neutrophil 3.9 K/uL (1.8-8.0); Basophils % 0.5 % (0-1.3); Hematocrit 41.3 % (39.6-49.0); MCH 28.6 pg (27.0-35.0); MCHC 33.9 g/dL (32.0-36.0); MCV 84.3 fL (80-100); MPV 7.8 fL (7.6-11.3); Monocytes % 8.5 % (3.3-12.3); Platelets 229 thou/uL (152-406); Red Cell Distribution Width 13.5 % (12.1-15.2)
[2023-09-20] MEDS ORDERED: PANTOPRAZOLE 40 MG INJ ONE (13:58)
[2023-09-20] MEDS ORDERED: FAMOTIDINE 20 MG/2 ML VIAL IV ONE (13:59)
--- NOTE | 2023-09-20 14:02 | RAD REPORT ---
EXAM DESCRIPTION: CTAbdomen Pelvis W Contrast - 09/20/2023 1:48 pm CLINICAL HISTORY: ABD PAIN COMPARISON: No comparisons TECHNIQUE: CT of the abdomen and pelvis was performed. All CT scans are performed using dose optimization technique as appropriate and may include automated exposure control or mA/KV adjustment according to patient size. FINDINGS: Lower chest: No acute abnormality. Liver: No acute abnormality or suspicious lesions. Biliary: No biliary ductal dilatation. Stomach: No significant focal abnormality. Duodenum: No significant focal abnormality. Pancreas: No significant abnormality. Spleen: No significant abnormality. Adrenal: No suspicious lesions. Kidney/ureter: No hydronephrosis. No renal calculi. Retroperitoneum: No retroperitoneal adenopathy. Vascular: No aneurysm. Bowel: No significant focal abnormality. Normal appendix. Peritoneum: No ascites or free air. Small fat containing inguinal hernias. Bladder: Grossly unremarkable. Reproductive: No adnexal masses. Bones: No acute fracture. Other: n/a IMPRESSION: No acute intra-abdominal or pelvic finding. Normal appendix. No urinary tract calculi.
[2023-09-20 14:10] LABS: Albumin 3.8 g/dL (3.4-5.0); Albumin/Globulin Ratio 1.3 (1.1-1.8); Anion Gap 6.6 mEq/L (5.0-15.0); Bilirubin Total 0.7 mg/dL (0.2-1.0); Potassium 3.6 mEq/L (3.5-5.1); Protein, Total 6.8 g/dL (6.4-8.2)
[2023-09-20 14:12] LABS: Specific Gravity 1.006 (1.005-1.030); Urine Bilirubin NEGATIVE (Negative); Urine Blood Negative (Negative); Urine Clarity Clear (Clear); Urine Color Colorless (Yellow); Urine Glucose NEGATIVE (Negative); Urine Ketones NEGATIVE (Negative); Urine Microscopic Reflex YN NO UMIC; Urine Nitrite NEGATIVE (Negative); Urine Protein NEGATIVE (Negative); Urine Urobilinogen Normal (Normal)
--- NOTE | 2023-09-20 14:38 | EDPHYS ---
Physician Documentation [facility] [place] Name: Bao Schaefer Age: 28 yrs Sex: Male : 1995 Arrival Date: 09/20/2023 Time: 11:56 Bed 16 Private MD: ED Physician Gilles Mariee HPI: 09/19 13:27 This 28 yrs old Male presents to ER via Ambulatory with complaints of sp3 Abdominal Pain, Vomiting/Diarrhea. 13:27 28-year-old male with history of GERD now presents to the ED with chief complaint sp3 epigastric pain for 8 days. 8 days ago patient had potential bad food and had vomiting and diarrhea for 3 days and it self resolved however for the last 5 days he continues to have abdominal cramping to the point where he is unable to eat and he is lost 6 pounds. He denies any other symptoms including fever, continued vomiting or diarrhea, melena, chest pain, shortness of breath, back pain, symptoms, or any other signs or symptoms on ROS at this time.. Historical: - Allergies: 12:14 No Known Allergies; aa5 - PMHx: 12:14 Gastric Reflux; aa5 - PSHx: 12:14 None; aa5 - Immunization history:: Adult Immunizations unknown. - Infectious Disease History:: Denies. - Social history:: Smoking status: Patient denies any tobacco usage or history of. ROS: 13:27 Constitutional: Negative for fever, chills, and weight loss, Eyes: Negative for injury, sp3 pain, redness, and discharge, ENT: Negative for injury, pain, and discharge, Neck: Negative for injury, pain, and swelling, Cardiovascular: Negative for chest pain, palpitations, and edema, Respiratory: Negative for shortness of breath, cough, wheezing, and pleuritic chest pain, Back: Negative for injury and pain, : Negative for injury, bleeding, discharge, and swelling, MS/Extremity: Negative for injury and deformity, Skin: Negative for injury, rash, and discoloration, Neuro: Negative for headache, weakness, numbness, tingling, and seizure, Psych: Negative for depression, anxiety, suicide ideation, homicidal ideation, and hallucinations, Allergy/Immunology: Negative for hives, rash, and allergies, Endocrine: Negative for neck swelling, polydipsia, polyuria, polyphagia, and marked weight changes, Hematologic/Lymphatic: Negative for swollen nodes, abnormal bleeding, and unusual bruising, 13:27 All other systems are negative, Exam: 13:28 Constitutional: This is a well developed, well nourished patient who is awake, alert, sp3 and in no acute distress. Head/Face: Normocephalic, atraumatic. Eyes: Pupils equal round and reactive to light, extra-ocular motions intact. Lids and lashes normal. Conjunctiva and sclera are non-icteric and not injected. Cornea within normal limits. Periorbital areas with no swelling, redness, or edema. ENT: Nares patent. No nasal discharge, no septal abnormalities noted. External auditory canals are clear. Oropharynx with no redness, swelling, or masses, exudates, or evidence of obstruction, uvula midline. Mucous membranes moist. Neck: Trachea midline, no thyromegaly or masses palpated, and no cervical lymphadenopathy. Supple, full range of motion without nuchal rigidity, or vertebral point tenderness. No Meningismus. Chest/axilla: Normal chest wall appearance and motion. Nontender with no deformity. No lesions are appreciated. Cardiovascular: Regular rate and rhythm with a normal S1 and S2. No gallops, murmurs, or rubs. Normal PMI, no JVD. No pulse deficits. Respiratory: Lungs have equal breath sounds bilaterally, clear to auscultation and percussion. No rales, rhonchi or wheezes noted. No increased work of breathing, no retractions or nasal flaring. Back: No spinal tenderness. No costovertebral tenderness. Full range of motion. Skin: Warm, dry with normal turgor. Normal color with no rashes, no lesions, and no evidence of cellulitis. MS/ Extremity: Pulses equal, no cyanosis. Neurovascular intact. Full, normal range of motion. Neuro: Awake and alert, GCS 15, oriented to person, place, time, and situation. Cranial nerves II-XII grossly intact. Motor strength 5/5 in all extremities. Sensory grossly intact. Cerebellar exam normal. Normal gait. Psych: Awake, alert, with orientation to person, place and time. Behavior, mood, and affect are within normal limits. 13:28 Abdomen/GI: Epigastric pain to palpation mild in nature without peritoneal signs, rebound or guarding. No CVA tenderness and no lower abdominal pain., Vital Signs: 12:04 BP 126 / 79; Pulse 73; Resp 18 S; Temp 97.7(O); Pulse Ox 97% on R/A; Weight 100.24 kg aa5 (R); Height 5 ft. 10 in. (R); 13:00 BP 132 / 82; Pulse 55; Resp 16; Pulse Ox 100% on R/A; tl4 14:00 BP 119 / 73; Pulse 58; Resp 16; Pulse Ox 100% on R/A; tl4 15:06 BP 123 / 75; Pulse 60; Resp 16; Pulse Ox 99% on R/A; Pain 4/10; tl4 12:04 Body Mass Index 31.71 (100.24 kg, 177.8 cm) aa5 15:06 Pain Scale: Adult tl4 MDM: 12:16 Patient medically screened. sp3 13:28 Data reviewed: vital signs, nurses notes, lab test result(s), radiologic studies. ED sp3 course: 28-year-old male with epigastric pain. Differential diagnosis includes gastritis, GERD, pancreatitis, biliary pathology including cholecystitis and cholelithiasis, other colitis, other GI pathology, among others. I am not highly suspicious for ACS or any other cardiovascular pathology, pathology, sepsis, shock or any other concerning findings. Workup will include laboratory values, Pepcid and Protonix IV, and CT scan of the abdomen pelvis with IV contrast. If workup is negative patient will be discharged safely home.. 14:37 ED course: CT scan negative and all labs are within normal limits. I believe this is sp3 gastritis. We will discharge patient safely home on p.o. Protonix for 30 days and follow-up with his PCP.. 09/19 13:48 Order name: Comprehensive Metabolic Panel EDMS 09/19 13:48 Order name: Lipase EDMS 09/19 13:48 Order name: CBC with Automated Diff EDMS 09/19 13:53 Order name: CBC with Automated Diff; Complete Time: 14:36 EDMS 09/19 14:10 Order name: Urinalysis w/ reflexes EDMS 09/19 14:10 Order name: Comprehensive Metabolic Panel; Complete Time: 14:36 EDMS 09/19 14:10 Order name: Lipase; Complete Time: 14:36 EDMS 09/19 14:12 Order name: Urinalysis w/ reflexes; Complete Time: 14:36 EDMS 09/19 13:07 Order name: Abdomen EDMS 09/19 14:03 Order name: CT; Complete Time: 14:36 EDMS 09/19 13:01 Order name: IV Saline Lock; Complete Time: 13:21 sp3 09/19 13:01 Order name: Labs collected and sent; Complete Time: 13:21 sp3 Administered Medications: 14:07 Drug: Pantoprazole IVP 40 mg IVP once Route: IVP; Site: left antecubital; tl4 15:05 Follow up: Response: No adverse reaction tl4 14:08 Drug: Famotidine IVP 20 mg IVP once; dilute with 10 mL 0.9% NaCl; give over 2 minutes tl4 Route: IVP; Infused Over: 2 mins; Site: left antecubital; 15:05 Follow up: Response: No adverse reaction tl4 Disposition Summary: 09/20/23 14:37 Discharge Ordered Notes: Location: Home sp3 Condition: Stable sp3 Diagnosis - Gastritis, GERD, epigastric pain sp3 Followup: sp3 - With: Private Physician - When: Upon discharge from the Emergency Department - Reason: Continuance of care Discharge Instructions: - Discharge Summary Sheet sp3 - Gastritis, Adult sp3 Forms: - Medication Reconciliation Form sp3 - Antibiotic Education sp3 - Prescription Opioid Use sp3 - Patient Portal Instructions sp3 - Leadership Thank You Letter sp3 Prescriptions: - Protonix 40 mg Oral Tablet - take 1 tablet ORAL route once daily; 30 tablet; Refills: 0, Product Selection sp3 Permitted Signatures: Dispatcher [employer] Jennifer Arora, RN RN aa5 Gilles Mariee MD MD sp3 Malik Brown RN RN tl4
--- NOTE | 2023-09-20 14:38 | ER ---
Nurse's Notes [facility] [place] Name: Bao Schaefer Age: 28 yrs Sex: Male : 1995 Arrival Date: 09/20/2023 Time: 11:56 Bed 16 Private MD: Diagnosis: Gastritis, GERD, epigastric pain Presentation: 09/19 12:04 Chief complaint: Patient states: abd pain since last Saturday, pt reports vomiting for 1 aa5 day and diarrhea for 4 days that has now resolved. Pt also reports decreased appetite. 12:04 Coronavirus screen: At this time, the client does not indicate any symptoms associated aa5 with coronavirus-19. Ebola Screen: Patient denies travel to an Ebola-affected area in the 21 days before illness onset. Initial Sepsis Screen: Does the patient meet any 2 criteria? No. Patient's initial sepsis screen is negative. Does the patient have a suspected source of infection? No. Patient's initial sepsis screen is negative. Risk Assessment: Do you want to hurt yourself or someone else? Patient reports no desire to harm self or others. Onset of symptoms was August 2023. 12:04 Acuity: CHETAN 3 aa5 12:04 Method Of Arrival: Ambulatory aa5 Historical: - Allergies: 12:14 No Known Allergies; aa5 - PMHx: 12:14 Gastric Reflux; aa5 - PSHx: 12:14 None; aa5 - Immunization history:: Adult Immunizations unknown. - Infectious Disease History:: Denies. - Social history:: Smoking status: Patient denies any tobacco usage or history of. Screenin:11 [facility] ED Fall Risk Assessment (Adult) History of falling in the last 3 months, tl4 including since admission No falls in past 3 months (0 pts) Confusion or Disorientation No (0 pts) Intoxicated or Sedated No (0 pts) Impaired Gait No (0 pts) Mobility Assist Device Used No (0 pt) Altered Elimination No (0 pt) Score/Fall Risk Level 0 - 2 = Low Risk Oriented to surroundings, Maintained a safe environment, Educated pt \T\ family on fall prevention, incl call for assistance when getting out of bed, Assessed \T\ reinforced patient's understanding of fall precautions. Abuse screen: Denies threats or abuse. Denies injuries from another. Nutritional screening: No deficits noted. Tuberculosis screening: No symptoms or risk factors identified. Assessment: 13:42 General: Appears in no apparent distress. Behavior is calm, cooperative. Pain: tl4 Complains of pain in abdomen. Neuro: Level of Consciousness is awake, alert, obeys commands, Oriented to person, place, time, situation, Moves all extremities. Full function Gait is steady, Speech is normal. Cardiovascular: Capillary refill < 3 seconds Patient's skin is warm and dry. Respiratory: Airway is patent Respiratory effort is even, unlabored, Respiratory pattern is regular, symmetrical, Breath sounds are clear bilaterally. GI: Bowel sounds present X 4 quads. Abd is soft and non tender Reports upper abdominal pain, nausea. : No signs and/or symptoms were reported regarding the genitourinary system. EENT: No signs and/or symptoms were reported regarding the EENT system. Derm: No signs and/or symptoms reported regarding the dermatologic system. Musculoskeletal: No signs and/or symptoms reported regarding the musculoskeletal system. 14:50 Reassessment: No changes from previously documented assessment. Patient and/or family tl4 updated on plan of care and expected duration. Pain level reassessed. Patient is alert, oriented x 3, equal unlabored respirations, skin warm/dry/pink. Vital Signs: 12:04 BP 126 / 79; Pulse 73; Resp 18 S; Temp 97.7(O); Pulse Ox 97% on R/A; Weight 100.24 kg aa5 (R); Height 5 ft. 10 in. (R); 13:00 BP 132 / 82; Pulse 55; Resp 16; Pulse Ox 100% on R/A; tl4 14:00 BP 119 / 73; Pulse 58; Resp 16; Pulse Ox 100% on R/A; tl4 15:06 BP 123 / 75; Pulse 60; Resp 16; Pulse Ox 99% on R/A; Pain 4/10; tl4 12:04 Body Mass Index 31.71 (100.24 kg, 177.8 cm) aa5 15:06 Pain Scale: Adult tl4 ED Course: 11:58 Patient arrived in ED. mr 12:04 Arm band placed on Patient placed in an exam room, on a stretcher. aa5 12:16 Triage completed. aa5 12:16 Gilles Mariee MD is Attending Physician. sp3 12:36 Logdahl, Malik, RN is Primary Nurse. tl4 13:21 Inserted saline lock: 20 gauge in left antecubital area, using aseptic technique. Blood jr12 collected. 13:21 CBC with Diff Sent. jr12 13:21 CMP Sent. jr12 13:21 Lipase Sent. jr12 13:50 Abdomen In Process Unspecified. EDMS 14:08 Urinalysis w/ reflexes Sent. tl4 14:11 Patient has correct armband on for positive identification. Placed in gown. Bed in low tl4 position. Call light in reach. Side rails up X2. Provided Education on: ED process. Client placed on continuous cardiac and pulse oximetry monitoring. NIBP monitoring applied. Door closed. Noise minimized. Lights dimmed. Moved to private room. Warm blanket given. 14:12 No provider procedures requiring assistance completed. tl4 15:06 IV discontinued, intact, bleeding controlled, No redness/swelling at site. Pressure tl4 dressing applied. Administered Medications: 14:07 Drug: Pantoprazole IVP 40 mg IVP once Route: IVP; Site: left antecubital; tl4 15:05 Follow up: Response: No adverse reaction tl4 14:08 Drug: Famotidine IVP 20 mg IVP once; dilute with 10 mL 0.9% NaCl; give over 2 minutes tl4 Route: IVP; Infused Over: 2 mins; Site: left antecubital; 15:05 Follow up: Response: No adverse reaction tl4 Medication: 14:11 VIS not applicable for this client. tl4 Outcome: 14:37 Discharge ordered by . sp3 15:06 Discharged to home ambulatory, tl4 15:06 Condition: stable 15:06 Discharge instructions given to patient, Instructed on discharge instructions, follow up and referral plans. medication usage, Demonstrated understanding of instructions, follow-up care, medications, Prescriptions given X 1, 15:07 Patient left the ED. tl4 Signatures: Dispatcher [employer] EDFL Samira Grossman, Reg Reg mr StarkeyGomezJennifer, RN RN aa5 Gilles Mariee MD MD sp3 Skylar Quintanilla jr12 Malik Brown RN RN tl4
[2023-09-21 14:46] VITALS: BP 123/75; TEMP 97.7; O2SAT 99
== END 2023-09-20 15:07 | disposition home or self-care (01) ==
LOC: ER 11:56
DX: K29.70 Gastritis, unspecified, without bleeding (principal); K21.9 Gastro-esophageal reflux disease without esophagitis
CPT/HCPCS: 85025; 36415; 81003; 83690; 80053; 74177; 96375; 96374; 99284; Q9967; C9113